=== PATIENT | female | born 1990 | race African-American/Black ===

== ENCOUNTER 2017-08-06 19:14 | Emergency (ER) | payer MEDICAID ==
[~2017-08-06] VITALS: Ht 160 cm; Wt 100.0 kg
[~2017-08-06 19:14] MED LIST: ALBU0.086 INH
[2017-08-06 19:16] VITALS: BP 146/79; PULSE 83; RESP 16; TEMP 98.5; O2SAT 100
[2017-08-06] MEDS ORDERED: ALBU2TAB4 INH (19:42)
[2017-08-06] MEDS ORDERED: SODIUM CHLOR 0.9% 1000 ML INJ 1,000 ML IV SCH (20:56)
--- NOTE | 2017-08-06 20:57 | PD ---
HPI Chief Complaint: GI Complaint Time Seen by Provider: 20:56 Travel History International Travel<30 days: No Contact w/Intl Traveler<30days: No Traveled to known affect area: No History of Present Illness HPI 27-year-old female with no significant medical history presents to the emergency department for evaluation of nausea without vomiting, lower abdominal pressure, diarrhea, urinary frequency, and a migraine headache. Patient states this all started this morning and has worsened throughout the day. She feels as though she is dehydrated. Denies any fever or chills. No chest or tightness. No difficulty breathing. No focal deficits or weakness. No other symptoms to report. PFSH Past Medical History Asthma: Yes Cancer: Yes (PT STATES CERVICAL [place]) Diminished Hearing: No Respiratory: Yes (ASTHMA) Immunizations Current: No Tetanus Vaccination: Unknown Influenza Vaccination: No ?: Not : 2 Para: 1 Miscarriage: 1 Past Surgical History Section: Yes Social History Alcohol Use: No Tobacco Use: No Substance Use: No Allergies-Medications (Allergen,Severity, Reaction): Coded Allergies: No Known Allergies (Verified , 08/06/17) Reported Meds & Prescriptions Reported Meds & Active Scripts Active Reported Albuterol (Albuterol Sulfate) 2 Mg Tab 2 Mg INH TID Review of Systems Except as stated in HPI: all other systems reviewed are Neg Physical Exam Narrative GENERAL: Well-nourished female patient, no acute distress SKIN: Focused skin assessment warm/dry. HEAD: Atraumatic. Normocephalic. EYES: Pupils equal and round. No scleral icterus. No injection or drainage. ENT: No nasal bleeding or discharge. Mucous membranes pink and moist. NECK: Trachea midline. No JVD. CARDIOVASCULAR: Regular rate and rhythm. No murmur appreciated. RESPIRATORY: No accessory muscle use. Clear to auscultation. Breath sounds equal bilaterally. GASTROINTESTINAL: Abdomen soft, non-tender, nondistended. Hepatic and splenic margins not palpable. No guarding or rebound tenderness. MUSCULOSKELETAL: No obvious deformities. No clubbing. No cyanosis. No edema. NEUROLOGICAL: Awake and alert. No obvious cranial nerve deficits. Motor grossly within normal limits. Normal speech. PSYCHIATRIC: Appropriate mood and affect; insight and judgment normal. Data Data Last Documented VS Vital Signs Date Time Temp Pulse Resp B/P (MAP) Pulse Ox O2 Delivery O2 Flow Rate FiO2 08/06/17 21:43 70 122/81 (95) 100 Room Air 08/06/17 21:43 18 08/06/17 19:16 98.5 Orders Orders Complete Blood Count With Diff (08/06/17 20:56) Comprehensive Metabolic Panel (08/06/17 20:56) Lipase (08/06/17 20:56) Prothrombin Time / Inr (Pt) (08/06/17 20:56) Act Partial Throm Time (Ptt) (08/06/17 20:56) Urinalysis - C+S If Indicated (08/06/17 20:56) Iv Access Insert/Monitor (08/06/17 20:56) Ecg Monitoring (08/06/17 20:56) Oximetry (08/06/17 20:56) Sodium Chlor 0.9% 1000 Ml Inj (Ns 1000 M (08/06/17 20:56) Sodium Chloride 0.9% Flush (Ns Flush) (08/06/17 21:00) Ed Urine Pregnancytest Poc (08/06/17 20:56) Ondansetron Inj (Zofran Inj) (08/06/17 21:15) Ketorolac Inj (Toradol Inj) (08/06/17 21:15) Urine Culture (08/06/17 21:15) Labs Laboratory Tests Test 08/06/17 21:15 08/06/17 21:20 Urine Color YELLOW Urine Turbidity HAZY Urine pH 6.0 Urine Specific [place] 1.014 Urine Protein NEG mg/dL Urine Glucose (UA) NEG mg/dL Urine Ketones NEG mg/dL Urine Occult Blood NEG Urine Nitrite NEG Urine Bilirubin NEG Urine Urobilinogen LESS THAN 2.0 MG/DL Urine Leukocyte Esterase LARGE Urine RBC 3 /hpf Urine WBC 22 /hpf Urine Squamous Epithelial Cells 3 /hpf Urine Bacteria RARE /hpf Microscopic Urinalysis Comment CULTURE INDICATED White Blood Count 11.0 TH/MM3 Red Blood Count 5.43 MIL/MM3 Hemoglobin 12.5 GM/DL Hematocrit 39.0 % Mean Corpuscular Volume 71.8 FL Mean Corpuscular Hemoglobin 23.0 PG Mean Corpuscular Hemoglobin Concent 32.0 % Red Cell Distribution Width 15.3 % Platelet Count 260 TH/MM3 Mean Platelet Volume 8.2 FL Neutrophils (%) (Auto) 59.3 % Lymphocytes (%) (Auto) 30.2 % Monocytes (%) (Auto) 8.4 % Eosinophils (%) (Auto) 1.5 % Basophils (%) (Auto) 0.6 % Neutrophils # (Auto) 6.5 TH/MM3 Lymphocytes # (Auto) 3.3 TH/MM3 Monocytes # (Auto) 0.9 TH/MM3 Eosinophils # (Auto) 0.2 TH/MM3 Basophils # (Auto) 0.1 TH/MM3 CBC Comment DIFF FINAL Differential Comment Prothrombin Time 10.3 SEC Prothromb Time International Ratio 0.9 RATIO Activated Partial Thromboplast Time 25.0 SEC Blood Urea Nitrogen 9 MG/DL Creatinine 0.74 MG/DL Random Glucose 81 MG/DL Total Protein 8.0 GM/DL Albumin 3.5 GM/DL Calcium Level 9.5 MG/DL Alkaline Phosphatase 82 U/L Aspartate Amino Transf (AST/SGOT) 21 U/L Alanine Aminotransferase (ALT/SGPT) 29 U/L Total Bilirubin 0.2 MG/DL Sodium Level 140 MEQ/L Potassium Level 3.7 MEQ/L Chloride Level 104 MEQ/L Carbon Dioxide Level 28.0 MEQ/L Anion Gap 8 MEQ/L Estimat Glomerular Filtration Rate 114 ML/MIN Lipase 168 U/L [facility] Medical Decision Making Medical Screen Exam Complete: Yes Emergency Medical Condition: Yes Medical Record Reviewed: Yes Differential Diagnosis UTI versus versus viral syndrome versus gastroenteritis Narrative Course 27-year-old female presents to the emergency department for evaluation. Patient appears without distress. Her vital signs are stable. Laboratory Tests Test 08/06/17 21:15 08/06/17 21:20 Urine Color YELLOW Urine Turbidity HAZY Urine pH 6.0 Urine Specific [place] 1.014 Urine Protein NEG mg/dL Urine Glucose (UA) NEG mg/dL Urine Ketones NEG mg/dL Urine Occult Blood NEG Urine Nitrite NEG Urine Bilirubin NEG Urine Urobilinogen LESS THAN 2.0 MG/DL Urine Leukocyte Esterase LARGE Urine RBC 3 /hpf Urine WBC 22 /hpf Urine Squamous Epithelial Cells 3 /hpf Urine Bacteria RARE /hpf Microscopic Urinalysis Comment CULTURE INDICATED White Blood Count 11.0 TH/MM3 Red Blood Count 5.43 MIL/MM3 Hemoglobin 12.5 GM/DL Hematocrit 39.0 % Mean Corpuscular Volume 71.8 FL Mean Corpuscular Hemoglobin 23.0 PG Mean Corpuscular Hemoglobin Concent 32.0 % Red Cell Distribution Width 15.3 % Platelet Count 260 TH/MM3 Mean Platelet Volume 8.2 FL Neutrophils (%) (Auto) 59.3 % Lymphocytes (%) (Auto) 30.2 % Monocytes (%) (Auto) 8.4 % Eosinophils (%) (Auto) 1.5 % Basophils (%) (Auto) 0.6 % Neutrophils # (Auto) 6.5 TH/MM3 Lymphocytes # (Auto) 3.3 TH/MM3 Monocytes # (Auto) 0.9 TH/MM3 Eosinophils # (Auto) 0.2 TH/MM3 Basophils # (Auto) 0.1 TH/MM3 CBC Comment DIFF FINAL Differential Comment Prothrombin Time 10.3 SEC Prothromb Time International Ratio 0.9 RATIO Activated Partial Thromboplast Time 25.0 SEC Blood Urea Nitrogen 9 MG/DL Creatinine 0.74 MG/DL Random Glucose 81 MG/DL Total Protein 8.0 GM/DL Albumin 3.5 GM/DL Calcium Level 9.5 MG/DL Alkaline Phosphatase 82 U/L Aspartate Amino Transf (AST/SGOT) 21 U/L Alanine Aminotransferase (ALT/SGPT) 29 U/L Total Bilirubin 0.2 MG/DL Sodium Level 140 MEQ/L Potassium Level 3.7 MEQ/L Chloride Level 104 MEQ/L Carbon Dioxide Level 28.0 MEQ/L Anion Gap 8 MEQ/L Estimat Glomerular Filtration Rate 114 ML/MIN Lipase 168 U/L Patient will be started on Keflex for urinary tract infection. She is encouraged follow-up with primary care provider and return immediately with any acute worsening symptoms. Diagnosis Primary Impression: UTI (urinary tract infection) Qualified Codes: N30.00 - Acute cystitis without hematuria Additional Impression: Gastroenteritis Referrals: Primary Care Physician Patient Instructions: General Instructions, Urinary Tract Infection in Women ( ED) Additional Instructions: Maintain adequate oral hydration Follow-up with a primary care provider Return immediately with any acute worsening symptoms Med/Other Pt SpecificInfo: Prescription(s) given Scripts Cephalexin (Keflex) 500 Mg Cap 500 MG PO Q12H for Infection for 7 Days, CAP 0 Refills Prov: Minerva Granados 08/06/17 Disposition: 01 DISCHARGE HOME Condition: Stable Minerva Granados Aug 06, 2017 20:57
[2017-08-06] MEDS ORDERED: SODIUM CHLORIDE 0.9% FLUSH 10 ML FLUSH IV FLUSH PRN (21:00)
[2017-08-06] MEDS ORDERED: KETOROLAC TROMETHAMINE 30 MG/ML (IVP) VIAL IV PUSH ONE (21:15)
[2017-08-06] MEDS ORDERED: ONDANSETRON HCL 4 MG/2 ML VIAL IV PUSH ONE (21:15)
[2017-08-06 21:43] VITALS: BP 122/81; PULSE 70; RESP 18; O2SAT 100
[2017-08-06 22:02] LABS: AUTOMATED NEUTROPHIL # 6.5 TH/MM3 (1.8-7.7); BASOPHIL # 0.1 TH/MM3 (0-0.2); BASOPHIL % 0.6 % (0.0-2.0); EOSINOPHIL # 0.2 TH/MM3 (0-0.4); EOSINOPHIL % 1.5 % (0.0-4.0); HEMO FLAGS DIFF FINAL; LYMPH % 30.2 % (9.0-44.0); LYMPHOCYTE # 3.3 TH/MM3 (1.0-4.8); MEAN CELL VOLUME 71.8 FL (80.0-100.0); MONO % 8.4 % (0.0-8.0); NEUT % 59.3 % (16.0-70.0); PLATELET COUNT 260 TH/MM3 (150-450); RED BLOOD COUNT 5.43 MIL/MM3 (4.00-5.30); RED CELL DISTRIBUTION WIDTH 15.3 % (11.6-17.2)
[2017-08-06 22:10] LABS: BACTERIA, URINE RARE /hpf; BLOOD, URINE NEG (NEG); COMMENT (UR) CULTURE INDICATED; CULTURE IF INDICATED CULTURE INDICATED; GLUCOSE,URINE NEG (NEG); KETONE, URINE NEG (NEG); NITRITE,URINE NEG (NEG); SQUAMOUS EPITHELIAL CELL URINE 3 /hpf (0-5); URINE COLOR YELLOW (YELLW/STRAW)
[2017-08-06 22:11] LABS: INTERNATIONAL NORMALIZED RATIO 0.9 RATIO; PROTHROMBIN TIME - PATIENT 10.3 SEC (9.8-11.6)
[2017-08-06 22:12] LABS: ANION GAP 8 MEQ/L (5-15); AST (GOT) 21 U/L (15-37); BLOOD UREA NITROGEN 9 MG/DL (7-18); CHLORIDE 104 MEQ/L (98-107); GLOMERULAR FILTRATION RATE 114 ML/MIN (>89); POTASSIUM 3.7 MEQ/L (3.5-5.1); SODIUM (NA) 140 MEQ/L (136-145)
[2017-08-06 22:13] LABS: ALT (GPT) 29 U/L (10-53)
[2017-08-06 22:15] LABS: ALKALINE PHOSPHATASE 82 U/L (45-117); TOTAL BILIRUBIN ADULT 0.2 MG/DL (0.2-1.0)
[2017-08-06] MEDS ORDERED: CEPH-460 PO (22:19)
== END 2017-08-06 22:42 | disposition home or self-care (01) ==
LOC: NEPD 19:14
DX: N39.0 Urinary tract infection, site not specified (principal); A49.8 Other bacterial infections of unspecified site; K52.9 Noninfective gastroenteritis and colitis, unspecified; J45.909 Unspecified asthma, uncomplicated; Z79.51 Long term (current) use of inhaled steroids
CPT/HCPCS: 80053; 81001; 83690; 84703; 85025; 85610; 85730; 87086; 96361; 96374; 96375; 99284; J1885; J2405; J7030

== ENCOUNTER 2017-11-19 11:20 | Emergency (ER) | payer MEDICAID ==
[~2017-11-19 11:20] MED LIST changes: -ALBU0.086 INH; +ALBU2TAB4 INH; +CEPH-460 PO
[2017-11-19 11:33] VITALS: BP 119/73; PULSE 69; PULSE 82; RESP 18; TEMP 98.9; O2SAT 99
[2017-11-19] MEDS ORDERED: CLINDAMYCIN 600 MG/DEX PREMIX 50 ML IV ONE (11:45)
[2017-11-19] MEDS ORDERED: KETOROLAC TROMETHAMINE 30 MG/ML (IVP) VIAL IV PUSH ONE (11:45)
--- NOTE | 2017-11-19 11:52 | PD ---
HPI Chief Complaint: Medical Clearance Time Seen by Provider: 11:29 Travel History International Travel<30 days: No Contact w/Intl Traveler<30days: No Traveled to known affect area: No History of Present Illness HPI 27-year-old female that presents to the ED for evaluation of 2 complaints. First complaint is that she has some mass on her left breast that is draining fluid and is painful. Per patient his been going on for 4 days. Per patient is becoming more prominent for the past 2 days but started draining today with some relief of the discomfort. Per patient the pain feels like a burning sensation. Denies any injury or trauma to this area. No history of IV drug abuse or abscesses in the past. Per patient is draining foul fluid. Denies any allergies to medication. Has not taken anything for this. Per patient the discomfort is 7 out of 10 and gets worse with touch and with movement. She states that she is also feeling somewhat weak but she is not sure if this is related to this or to her second complaint. Her second complaint is that she's been having clots with her menses for the past 2 weeks. Per patient his initial for her. She's not sure this is related to something else as she did had a tubal ligation. Per patient she's had an ablation the past but denies any other medical issues. No chest pain or shortness of breath. No urinary symptoms. Per patient the clots are significant for her. She states that she is also having a headache at this time. She has not seen anybody for any of these symptoms. She has not [employer] at this time. PFSH Past Medical History Asthma: Yes Cancer: Yes (PT STATES CERVICAL CA) Diminished Hearing: No Respiratory: Yes (ASTHMA) Immunizations Current: No ?: Not LMP: ligation : 2 Para: 1 Miscarriage: 1 Past Surgical History Section: Yes Social History Alcohol Use: No Tobacco Use: No Substance Use: No Allergies-Medications (Allergen,Severity, Reaction): Coded Allergies: No Known Allergies (Verified , 08/06/17) Reported Meds & Prescriptions Reported Meds & Active Scripts Active Keflex (Cephalexin) 500 Mg Cap 500 Mg PO Q12H 10 Days Clindamycin (Clindamycin HCl) 150 Mg Cap 300 Mg PO Q8HR 10 Days Keflex (Cephalexin) 500 Mg Cap 500 Mg PO Q12H 7 Days Reported Albuterol (Albuterol Sulfate) 2 Mg Tab 2 Mg INH TID Review of Systems Except as stated in HPI: all other systems reviewed are Neg Physical Exam Narrative GENERAL: SKIN: Warm and dry. Full range of motion of the upper and lower extremities bilaterally. Patient has a significant about 3 cm mass on the left axilla on the area of the arm. Tender in purulent with half a centimeter opening draining purulent fluid. A lot of purulent fluids obtained from this area. Hard to express as patient herself will not allow me to do much examination of the area. Patient does not appear to have any lymphadenopathy. HEAD: Atraumatic. Normocephalic. EYES: Pupils equal and round. No scleral icterus. No injection or drainage. ENT: No nasal bleeding or discharge. Mucous membranes pink and moist. Tongue is midline. No uvula deviation. NECK: Trachea midline. No JVD. CARDIOVASCULAR: Regular rate and rhythm. No murmurs, S3, S4. RESPIRATORY: No accessory muscle use. Clear to auscultation. Breath sounds equal bilaterally. GASTROINTESTINAL: Abdomen soft, non-tender, nondistended. Hepatic and splenic margins not palpable. MUSCULOSKELETAL: Extremities without clubbing, cyanosis, or edema. No obvious deformities. NEUROLOGICAL: Awake and alert. No obvious cranial nerve deficits. Motor grossly within normal limits. Five out of 5 muscle strength in the arms and legs. Normal speech. PSYCHIATRIC: Appropriate mood and affect; insight and judgment normal. Data Data Last Documented VS Vital Signs Date Time Temp Pulse Resp B/P (MAP) Pulse Ox O2 Delivery O2 Flow Rate FiO2 11/19/17 12:10 83 18 11/19/17 11:33 98.9 119/73 (88) 99 Room Air Orders Orders Complete Blood Count With Diff (11/19/17 11:41) Basic Metabolic Panel (Bmp) (11/19/17 11:41) Blood Culture (11/19/17 11:41) Urinalysis - C+S If Indicated (11/19/17 11:41) Magnesium (Mg) (11/19/17 11:41) Wound Culture And Gram Stain (11/19/17 11:41) Wet Prep Profile (11/19/17 11:41) Gc And Chlamydia Pcr (11/19/17 11:41) Iv Access Insert/Monitor (11/19/17 11:41) Ed Urine Pregnancytest Poc (11/19/17 11:41) Clindamycin 600 Mg/Dex Premix (Cleocin 6 (11/19/17 11:45) Ketorolac Inj (Toradol Inj) (11/19/17 11:45) Metronidazole (Flagyl) (11/19/17 12:30) Ed Discharge Order (11/19/17 13:01) Labs Laboratory Tests Test 11/19/17 11:52 11/19/17 12:03 11/19/17 12:10 11/19/17 12:43 Urine Color YELLOW Urine Turbidity CLEAR Urine pH 6.5 Urine Specific [place] 1.016 Urine Protein TRACE mg/dL Urine Glucose (UA) NEG mg/dL Urine Ketones NEG mg/dL Urine Occult Blood MOD Urine Nitrite NEG Urine Bilirubin NEG Urine Urobilinogen LESS THAN 2.0 MG/DL Urine Leukocyte Esterase SMALL Urine RBC 6 /hpf Urine WBC 7 /hpf Urine Squamous Epithelial Cells 2 /hpf Urine Bacteria RARE /hpf Urine Mucus FEW /lpf Microscopic Urinalysis Comment CULT NOT INDICATED Blood Urea Nitrogen 7 MG/DL Creatinine 0.63 MG/DL Random Glucose 101 MG/DL Calcium Level 9.0 MG/DL Magnesium Level 2.2 MG/DL Sodium Level 139 MEQ/L Potassium Level 4.3 MEQ/L Chloride Level 106 MEQ/L Carbon Dioxide Level 27.2 MEQ/L Anion Gap 6 MEQ/L Estimat Glomerular Filtration Rate 137 ML/MIN Clue Cells (Wet Prep) NONE SEEN Vaginal Trichomonas (Wet Prep) PRESENT Vaginal Yeast (Wet Prep) NONE SEEN White Blood Count 17.4 TH/MM3 Red Blood Count 5.12 MIL/MM3 Hemoglobin 11.7 GM/DL Hematocrit 35.7 % Mean Corpuscular Volume 69.8 FL Mean Corpuscular Hemoglobin 22.9 PG Mean Corpuscular Hemoglobin Concent 32.9 % Red Cell Distribution Width 15.8 % Platelet Count 344 TH/MM3 Mean Platelet Volume 9.1 FL Neutrophils (%) (Auto) 68.9 % Lymphocytes (%) (Auto) 21.8 % Monocytes (%) (Auto) 8.1 % Eosinophils (%) (Auto) 0.7 % Basophils (%) (Auto) 0.5 % Neutrophils # (Auto) 12.0 TH/MM3 Lymphocytes # (Auto) 3.8 TH/MM3 Monocytes # (Auto) 1.4 TH/MM3 Eosinophils # (Auto) 0.1 TH/MM3 Basophils # (Auto) 0.1 TH/MM3 CBC Comment DIFF FINAL Differential Comment MDM Medical Decision Making Medical Screen Exam Complete: Yes Emergency Medical Condition: Yes Medical Record Reviewed: Yes Interpretation(s) CBC & BMP Diagram 11/19/17 12:03 Calcium Level 9.0, Magnesium Level 2.2 11/19/17 12:43 wet prep positive for trichomonas UA shows possible UTI Differential Diagnosis Abscess versus lymphadenitis versus draining abscess versus menses versus dysmenorrhea versus metromenorrhagia versus infection Narrative Course 27-year-old female that presents to the ED for evaluation of 2 different complaints. Patient was properly examined and was found to have signs and symptoms which appear to be concerning for draining abscess as well as vaginal bleeding. Unclear if the weakness is secondary to one of the other but likely a combination. Vitals are stable. Her abscess is already draining and I tried to express as much fluid as I could the patient herself is not very willing to allow me secondary to discomfort. She prefers to start antibiotics. I think this is reasonable this time as is already draining. She understands that the fluid could stop draining and she will require an incision and drainage if so happens. I was able to get a culture of the draining fluid. I do recommend some labs to make sure patient is not anemic secondary to her clots in menses. I do recommend doing a pelvic examination shows gonzales with this. Patient was started on clindamycin and Toradol. Labs and imaging showed leukocytosis as well as Trichomonas and what appears to be possible UTI. Physical exam she is well. Vitals are stable. Patient has been taking antibiotic. This time I do recommend trial of antibiotics. Patient was given Flagyl by mouth here take care of the Trichomonas. She was counseled to abstain from sex for the next 2 weeks. And always use protection. Have her partner checked. In regards to her infection she prefers take antibiotics outpatient. Patient was given a prescription for clindamycin and Keflex. Keflex to cover for the UTI and clindamycin for the abscess infection. She was told that if anything changes she is to come back to the ED. Follow with PCP. See ED worsening symptoms. Dr Jaimes was made aware of plan and agrees with it. Diagnosis Primary Impression: Abscess Additional Impressions: UTI (urinary tract infection) Qualified Codes: N30.01 - Acute cystitis with hematuria Trichomonas vaginitis Patient Instructions: General Instructions Additional Instructions: Take medications as prescribed. Avoid sex for the next 2 weeks and use protection. Have your partner checked for Trichomonas as this condition can be transferred from partner to partner. Follow with [employer] if this continues. Take antibiotics as prescribed. Recheck in 2 days if not better or worsening symptoms. If the abscesses stopped draining and it continues to be symptomatic you need to come back to the ED as it could require draining. Follow up with PCP. See ED if worsening symptoms. Med/Other Pt SpecificInfo: Prescription(s) given Scripts Cephalexin (Keflex) 500 Mg Cap 500 MG PO Q12H for Infection for 10 Days, #20 CAP 0 Refills Prov: Gideon Jaimes MD 11/19/17 Clindamycin (Clindamycin) 150 Mg Cap 300 MG PO Q8HR for Infection for 10 Days, CAP 0 Refills Prov: Gideon Jaimes MD 11/19/17 Disposition: 01 DISCHARGE HOME Condition: Stable Champ Hi Nov 19, 2017 11:52
[2017-11-19 12:18] LABS: BACTERIA, URINE RARE /hpf; BILIRUBIN, URINE NEG (NEG); BLOOD, URINE MOD (NEG); GLUCOSE,URINE NEG (NEG); KETONE, URINE NEG (NEG); MUCUS URINE FEW /lpf (OCC); NITRITE,URINE NEG (NEG); PH, URINE 6.5 (5.0-8.5); SQUAMOUS EPITHELIAL CELL URINE 2 /hpf (0-5); URINE COLOR YELLOW (YELLW/STRAW); URINE LEUKOCYTE ESTERASE SMALL (NEG)
[2017-11-19] MEDS ORDERED: metroNIDAZOLE 500 MG TAB PO ONE (12:30)
[2017-11-19 12:36] LABS: BICARBONATE 27.2 MEQ/L (21.0-32.0); CREATININE 0.63 MG/DL (0.50-1.00)
[2017-11-19 12:37] LABS: MAGNESIUM 2.2 MG/DL (1.5-2.5)
[2017-11-19 12:50] LABS: BASOPHIL # 0.1 TH/MM3 (0-0.2); BASOPHIL % 0.5 % (0.0-2.0); EOSINOPHIL # 0.1 TH/MM3 (0-0.4); EOSINOPHIL % 0.7 % (0.0-4.0); HEMATOCRIT 35.7 % (35.0-46.0); HEMOGLOBIN 11.7 GM/DL (11.6-15.3); LYMPH % 21.8 % (9.0-44.0); LYMPHOCYTE # 3.8 TH/MM3 (1.0-4.8); MEAN CELL VOLUME 69.8 FL (80.0-100.0); MEAN CORPUSCULAR HEMOGLOBIN 22.9 PG (27.0-34.0); MEAN CORPUSCULAR HGB CONC 32.9 % (32.0-36.0); MEAN PLATELET VOLUME 9.1 FL (7.0-11.0); MONO % 8.1 % (0.0-8.0); MONOCYTE # 1.4 TH/MM3 (0-0.9); NEUT % 68.9 % (16.0-70.0); PLATELET COUNT 344 TH/MM3 (150-450); RED BLOOD COUNT 5.12 MIL/MM3 (4.00-5.30); RED CELL DISTRIBUTION WIDTH 15.8 % (11.6-17.2); WHITE BLOOD COUNT 17.4 TH/MM3 (4.0-11.0)
[2017-11-19] MEDS ORDERED: CLIN150C14 PO (13:01)
[2017-11-19] MEDS ORDERED: CEPH-460 PO (13:01)
== END 2017-11-19 13:09 | disposition home or self-care (01) ==
LOC: NEPE 11:20
DX: L02.412 Cutaneous abscess of left axilla (principal); B95.0 Streptococcus, group A, as the cause of diseases classified elsewhere; N30.01 Acute cystitis with hematuria; A59.01 Trichomonal vulvovaginitis; J45.909 Unspecified asthma, uncomplicated
CPT/HCPCS: 80048; 81001; 83735; 84703; 85025; 86403; 87040; 87070; 87210; 87491; 87591; 96374; 96375; 99284; J1885

== ENCOUNTER 2018-04-08 08:26 | Emergency (ER) | payer MEDICAID ==
[~2018-04-08] VITALS: Ht 160 cm; Wt 100.0 kg
[~2018-04-08 08:26] MED LIST changes: +CLIN150C14 PO
[2018-04-08 08:31] VITALS: BP 123/62; PULSE 76; RESP 20; TEMP 97.9; O2SAT 100
[2018-04-08] MEDS ORDERED: SODIUM CHLOR 0.9% 1000 ML INJ 1,000 ML IV SCH (08:47)
[2018-04-08] MEDS ORDERED: BUDE.25I NEB (08:51)
[2018-04-08] MEDS ORDERED: KETOROLAC TROMETHAMINE 30 MG/ML (IVP) VIAL IVP ONE (09:00)
[2018-04-08] MEDS ORDERED: FAMOTIDINE 20 MG/2 ML VIAL IV PUSH ONE (09:00)
[2018-04-08] MEDS ORDERED: ONDANSETRON ODT 4 MG TAB PO ONE ×2 (09:00→11:30)
[2018-04-08] MEDS ORDERED: SODIUM CHLORIDE 0.9% FLUSH 10 ML FLUSH IV FLUSH PRN (09:00)
--- NOTE | 2018-04-08 09:18 | PD ---
HPI Chief Complaint: Abdominal Pain Time Seen by Provider: 08:34 Travel History International Travel<30 days: No Contact w/Intl Traveler<30days: No Traveled to known affect area: No History of Present Illness HPI The patient is a 28-year-old female who presents to emergency department for abdominal pain. The patient has a one-week history of diarrhea, originally loose and watery, now soft. However, she developed nausea and vomiting last night which progressed this morning it is associated with epigastric to right upper quadrant abdominal pain. The pain is occasionally burning, is worse after eating hot chicken wings. The patient denies any dysuria, frequency, urgency, discharge, or bleeding. The patient's last menstrual cycle was in November, she notes a history of irregular menstrual cycles. The patient also has a history of tubal ligation, denies . The patient denies any known history of gallstones, biliary colic, gastritis, or pancreatitis. She denies any chronic alcohol abuse, does drink wine occasionally. Symptoms are moderate without any alleviating factors. PFSH Past Medical History Asthma: Yes Cancer: Yes (reported cervical CA when had daughter, no treatment, ) Diminished Hearing: No Respiratory: Yes (ASTHMA) Immunizations Current: No Tetanus Vaccination: Unknown ?: Not LMP: NOV 2017, IRREGULAR : 3 Para: 2 Miscarriage: 1 Tubal Ligation: Yes Past Surgical History Surgical History: No Previous Surgery Section: Yes Social History Alcohol Use: Yes (on occasion) Tobacco Use: Yes (0.5 pack every couple of days) Substance Use: Yes (marijuana, twice week) Allergies-Medications (Allergen,Severity, Reaction): Coded Allergies: No Known Allergies (Verified , 08/06/17) Reported Meds & Prescriptions Reported Meds & Active Scripts Active Reported Pulmicort Respules (Budesonide) 0.25 Mg/2 Ml Neb 0.25 Mg NEB DAILY NEB PRN Albuterol (Albuterol Sulfate) 2 Mg Tab 2 Mg INH TID Review of Systems Except as stated in HPI: all other systems reviewed are Neg General / Constitutional: No: Fever Cardiovascular: No: Chest Pain or Discomfort Respiratory: No: Shortness of Breath Gastrointestinal: Positive: Nausea, Vomiting, Diarrhea, Abdominal Pain Genitourinary: No: Urgency, Frequency, Dysuria, Hematuria, Discharge, Vaginal Bleeding Physical Exam Narrative GENERAL: Awake, alert, pleasant 28-year-old female who appears her stated age and is in no acute respiratory distress. SKIN: Focused skin assessment warm/dry. HEAD: Atraumatic. Normocephalic. EYES: Pupils equal and round. No scleral icterus. No injection or drainage. ENT: No nasal bleeding or discharge. Mucous membranes pink and moist. NECK: Trachea midline. No JVD. CARDIOVASCULAR: Regular rate and rhythm. No murmur appreciated. RESPIRATORY: No accessory muscle use. Clear to auscultation. Breath sounds equal bilaterally. GASTROINTESTINAL: Abdomen soft, tender palpation epigastrium and right upper quadrant. Negative McBurney's. Back: No CVA tenderness. MUSCULOSKELETAL: No obvious deformities. No clubbing. No cyanosis. No edema. NEUROLOGICAL: Awake and alert. No obvious cranial nerve deficits. Motor grossly within normal limits. Normal speech. PSYCHIATRIC: Appropriate mood and affect; insight and judgment normal. Data Data Last Documented VS Vital Signs Date Time Temp Pulse Resp B/P (MAP) Pulse Ox O2 Delivery O2 Flow Rate FiO2 04/08/18 11:23 76 19 112/62 (79) 100 Room Air 04/08/18 08:31 97.9 Orders Orders Complete Blood Count With Diff (04/08/18 08:47) Comprehensive Metabolic Panel (04/08/18 08:47) Lipase (04/08/18 08:47) Urinalysis - C+S If Indicated (04/08/18 08:47) Us Abdomen Gallbladder (04/08/18 ) Iv Access Insert/Monitor (04/08/18 08:47) Ecg Monitoring (04/08/18 08:47) Oximetry (04/08/18 08:47) Sodium Chlor 0.9% 1000 Ml Inj (Ns 1000 M (04/08/18 08:47) Sodium Chloride 0.9% Flush (Ns Flush) (04/08/18 09:00) Famotidine Inj (Pepcid Inj) (04/08/18 09:00) Ketorolac Inj (Toradol Inj) (04/08/18 09:00) Ed Urine Pregnancytest Poc (04/08/18 08:47) Ondansetron Odt (Zofran Odt) (04/08/18 09:00) Labs Laboratory Tests Test 04/08/18 09:00 04/08/18 09:40 04/08/18 10:00 Blood Urea Nitrogen 7 MG/DL Creatinine 0.68 MG/DL Random Glucose 88 MG/DL Total Protein 7.9 GM/DL Albumin 3.6 GM/DL Calcium Level 9.0 MG/DL Alkaline Phosphatase 76 U/L Aspartate Amino Transf (AST/SGOT) 25 U/L Alanine Aminotransferase (ALT/SGPT) 24 U/L Total Bilirubin 0.2 MG/DL Sodium Level 139 MEQ/L Potassium Level 4.1 MEQ/L Chloride Level 107 MEQ/L Carbon Dioxide Level 23.5 MEQ/L Anion Gap 9 MEQ/L Estimat Glomerular Filtration Rate 125 ML/MIN Lipase 130 U/L Urine Color LIGHT-YELLOW Urine Turbidity CLEAR Urine pH 6.0 Urine Specific [place] 1.012 Urine Protein NEG mg/dL Urine Glucose (UA) NEG mg/dL Urine Ketones NEG mg/dL Urine Occult Blood NEG Urine Nitrite NEG Urine Bilirubin NEG Urine Urobilinogen LESS THAN 2.0 MG/DL Urine Leukocyte Esterase NEG Urine RBC 1 /hpf Urine WBC LESS THAN 1 /hpf Urine Squamous Epithelial Cells 7 /hpf Microscopic Urinalysis Comment CULT NOT INDICATED White Blood Count 9.6 TH/MM3 Red Blood Count 5.99 MIL/MM3 Hemoglobin 11.9 GM/DL Hematocrit 37.7 % Mean Corpuscular Volume 62.9 FL Mean Corpuscular Hemoglobin 19.9 PG Mean Corpuscular Hemoglobin Concent 31.7 % Red Cell Distribution Width 21.0 % Platelet Count 296 TH/MM3 Mean Platelet Volume 8.7 FL Neutrophils (%) (Auto) 52.2 % Lymphocytes (%) (Auto) 37.5 % Monocytes (%) (Auto) 8.4 % Eosinophils (%) (Auto) 1.3 % Basophils (%) (Auto) 0.6 % Neutrophils # (Auto) 5.0 TH/MM3 Lymphocytes # (Auto) 3.6 TH/MM3 Monocytes # (Auto) 0.8 TH/MM3 Eosinophils # (Auto) 0.1 TH/MM3 Basophils # (Auto) 0.1 TH/MM3 CBC Comment DIFF FINAL Differential Comment MDM Medical Decision Making Medical Screen Exam Complete: Yes Emergency Medical Condition: Yes Medical Record Reviewed: Yes Interpretation(s) Laboratory Tests Test 04/08/18 09:00 04/08/18 09:40 04/08/18 10:00 Blood Urea Nitrogen 7 MG/DL Creatinine 0.68 MG/DL Random Glucose 88 MG/DL Total Protein 7.9 GM/DL Albumin 3.6 GM/DL Calcium Level 9.0 MG/DL Alkaline Phosphatase 76 U/L Aspartate Amino Transf (AST/SGOT) 25 U/L Alanine Aminotransferase (ALT/SGPT) 24 U/L Total Bilirubin 0.2 MG/DL Sodium Level 139 MEQ/L Potassium Level 4.1 MEQ/L Chloride Level 107 MEQ/L Carbon Dioxide Level 23.5 MEQ/L Anion Gap 9 MEQ/L Estimat Glomerular Filtration Rate 125 ML/MIN Lipase 130 U/L Urine Color LIGHT-YELLOW Urine Turbidity CLEAR Urine pH 6.0 Urine Specific [place] 1.012 Urine Protein NEG mg/dL Urine Glucose (UA) NEG mg/dL Urine Ketones NEG mg/dL Urine Occult Blood NEG Urine Nitrite NEG Urine Bilirubin NEG Urine Urobilinogen LESS THAN 2.0 MG/DL Urine Leukocyte Esterase NEG Urine RBC 1 /hpf Urine WBC LESS THAN 1 /hpf Urine Squamous Epithelial Cells 7 /hpf Microscopic Urinalysis Comment CULT NOT INDICATED White Blood Count 9.6 TH/MM3 Red Blood Count 5.99 MIL/MM3 Hemoglobin 11.9 GM/DL Hematocrit 37.7 % Mean Corpuscular Volume 62.9 FL Mean Corpuscular Hemoglobin 19.9 PG Mean Corpuscular Hemoglobin Concent 31.7 % Red Cell Distribution Width 21.0 % Platelet Count 296 TH/MM3 Mean Platelet Volume 8.7 FL Neutrophils (%) (Auto) 52.2 % Lymphocytes (%) (Auto) 37.5 % Monocytes (%) (Auto) 8.4 % Eosinophils (%) (Auto) 1.3 % Basophils (%) (Auto) 0.6 % Neutrophils # (Auto) 5.0 TH/MM3 Lymphocytes # (Auto) 3.6 TH/MM3 Monocytes # (Auto) 0.8 TH/MM3 Eosinophils # (Auto) 0.1 TH/MM3 Basophils # (Auto) 0.1 TH/MM3 CBC Comment DIFF FINAL Differential Comment Last Impressions Gall Bladder Ultrasound 04/08/18 0000 Signed Impressions: Service Date/Time: Sunday, April 08, 2018 08:49 - CONCLUSION: Hepatomegaly and mild echogenic liver parenchyma identified which can be seen with hepatic steatosis or underlying hepatocellular disease. The study is otherwise normal. Mario Alberto Smith MD Differential Diagnosis Differential diagnosis includes gastritis, gastroenteritis, pancreatitis, biliary colic, cholecystitis, symptomatic cholelithiasis, choledocholithiasis, atypical appendicitis, pyelonephritis. Narrative Course IV was established, labs are drawn and sent, and the patient was placed on cardiac telemetry monitoring and continuous pulse oximetry monitoring. The patient was administered Toradol, Zofran ODT, Pepcid, and IV fluids. Ultrasound of the gallbladder was obtained. Bedside UA test was obtained and UA was sent to lab. The patient's UA is unremarkable. test is negative. White count, LFTs, lipase are within normal limits. Ultrasound reveals hepatic steatosis, otherwise unremarkable. The patient was reevaluated, still has mild epigastric discomfort and nausea. The patient was administered a GI cocktail and Zofran. She will be discharged home on Zantac and Zofran and is advised to have a bland diet for several weeks and follow-up with her primary physician. Return if symptoms worsen or progress. Diagnosis Primary Impression: Epigastric abdominal pain Additional Impression: Nausea and vomiting Qualified Codes: R11.2 - Nausea with vomiting, unspecified Patient Instructions: General Instructions Additional Instructions: Medications as directed. Clear liquid diet and advance as tolerated. [place] diet for 2 weeks. Follow-up with your primary physician. Return if symptoms worsen or progress. Med/Other Pt SpecificInfo: Prescription(s) given Scripts Ranitidine (Zantac) 150 Mg Tab 150 MG PO BID for Reduce Stomach Acid, #30 TAB 0 Refills Prov: Daniel Gerard MD 04/08/18 Ondansetron Odt (Zofran Odt) 4 Mg Tab 4 MG SL Q6HR Y for Nausea/Vomiting, #7 TAB 0 Refills Prov: Daniel Gerard MD 04/08/18 Disposition: 01 DISCHARGE HOME Condition: Stable Daniel Gerard MD April 08, 2018 09:18
--- NOTE | 2018-04-08 09:18 | RADRPT ---
EXAM DATE/TIME: 04/08/2018 08:49 [facility] COMPARISON: No previous studies available for comparison. INDICATIONS : Right upper quadrant pain. MEDICAL HISTORY : Asthma. Substance use. SURGICAL HISTORY : Tubal ligation. Hysterectomy. section. ENCOUNTER: Initial ACUITY: 3 days PAIN SCORE: 8/10 LOCATION: Right upper quadrant MEASUREMENTS: LIVER: 18.6 cm length COMMON DUCT: 2 mm RIGHT KIDNEY: 12.1 x 6.0 x 4.6 cm FINDINGS: LIVER: Mild increased echotexture without focal lesion or ductal dilatation. COMMON DUCT: No intraluminal mass or stone visualized. GALLBLADDER: Contains no stones, demonstrates no wall thickening or pericholecystic fluid. PANCREAS: The visualized portions are within normal limits. RIGHT KIDNEY: No evidence of hydronephrosis, stone, or mass. CONCLUSION: Hepatomegaly and mild echogenic liver parenchyma identified which can be seen with hepatic steatosis or underlying hepatocellular disease. The study is otherwise normal. Mario Alberto Smith MD on April 08, 2018 at 9:15 Board Certified Radiologist. This report was verified electronically.
[2018-04-08 09:21] VITALS: BP 107/65; PULSE 70; RESP 20; O2SAT 98
[2018-04-08 10:07] LABS: BLOOD UREA NITROGEN 7 MG/DL (7-18)
[2018-04-08 10:08] LABS: ALBUMIN 3.6 GM/DL (3.4-5.0); ALKALINE PHOSPHATASE 76 U/L (45-117); ALT (GPT) 24 U/L (10-53); AST (GOT) 25 U/L (15-37); CREATININE 0.68 MG/DL (0.50-1.00); GLOMERULAR FILTRATION RATE 125 ML/MIN (>89); GLUCOSE,RANDOM 88 MG/DL (74-106); TOTAL BILIRUBIN ADULT 0.2 MG/DL (0.2-1.0); TOTAL PROTEIN 7.9 GM/DL (6.4-8.2)
[2018-04-08 10:09] LABS: BICARBONATE 23.5 MEQ/L (21.0-32.0); CHLORIDE 107 MEQ/L (98-107); SODIUM (NA) 139 MEQ/L (136-145)
[2018-04-08 10:21] LABS: BASOPHIL # 0.1 TH/MM3 (0-0.2); BASOPHIL % 0.6 % (0.0-2.0); EOSINOPHIL # 0.1 TH/MM3 (0-0.4); EOSINOPHIL % 1.3 % (0.0-4.0); HEMATOCRIT 37.7 % (35.0-46.0); HEMOGLOBIN 11.9 GM/DL (11.6-15.3); LYMPH % 37.5 % (9.0-44.0); LYMPHOCYTE # 3.6 TH/MM3 (1.0-4.8); MEAN CELL VOLUME 62.9 FL (80.0-100.0); MEAN CORPUSCULAR HEMOGLOBIN 19.9 PG (27.0-34.0); MEAN CORPUSCULAR HGB CONC 31.7 % (32.0-36.0); MEAN PLATELET VOLUME 8.7 FL (7.0-11.0); MONO % 8.4 % (0.0-8.0); MONOCYTE # 0.8 TH/MM3 (0-0.9); NEUT % 52.2 % (16.0-70.0); PLATELET COUNT 296 TH/MM3 (150-450); RED BLOOD COUNT 5.99 MIL/MM3 (4.00-5.30); WHITE BLOOD COUNT 9.6 TH/MM3 (4.0-11.0)
[2018-04-08 10:25] LABS: BILIRUBIN, URINE NEG (NEG); BLOOD, URINE NEG (NEG); GLUCOSE,URINE NEG (NEG); KETONE, URINE NEG (NEG); NITRITE,URINE NEG (NEG); SQUAMOUS EPITHELIAL CELL URINE 7 /hpf (0-5); URINE COLOR LIGHT-YELLOW (YELLW/STRAW); URINE LEUKOCYTE ESTERASE NEG (NEG)
[2018-04-08 11:23] VITALS: BP 112/62; PULSE 76; RESP 19; O2SAT 100
[2018-04-08] MEDS ORDERED: LIDOCAINE VISCOUS 2% SOLN 15 ML UDC PO ONE (11:30)
[2018-04-08] MEDS ORDERED: ALUMINUM/MAGNESIUM/SIMETH 30 ML CUP PO ONE (11:30)
[2018-04-08] MEDS ORDERED: ZANT150T2 PO (11:31)
[2018-04-08] MEDS ORDERED: ZOFR4TAB3 SL (11:31)
== END 2018-04-08 12:08 | disposition home or self-care (01) ==
LOC: NEPC 08:26
DX: R10.13 Epigastric pain (principal); R11.2 Nausea with vomiting, unspecified; J45.909 Unspecified asthma, uncomplicated; F12.90 Cannabis use, unspecified, uncomplicated; F17.200 Nicotine dependence, unspecified, uncomplicated
CPT/HCPCS: 76705; 80053; 81001; 83690; 84703; 85025; 96361; 96374; 96375; 99285; J1885; J7030